=== PATIENT | male | born 1990 | race Caucasian/White ===

== ENCOUNTER 2018-05-24 09:44 | Emergency (ER) | payer BC ==
[~2018-05-24] VITALS: Ht 188 cm; Wt 72.6 kg
[2018-05-24 10:42] LABS: BASOPHIL % 0.8 % (0-2); PLATELET COUNT 248 x10^3mcL (130-400); RED CELL DISTRIBUTION WIDTH 13.4 % (11.5-14.5)
[2018-05-24 11:04] LABS: CALCIUM 9.6 mg/dL (8.5-10.1); CARBON DIOXIDE 24.7 mmol/L (21-32); CHLORIDE SERUM 98 mmol/L (98-107); CREATININE SERUM 1.2 mg/dL (0.7-1.3); GFR1 > 60 mL/min; GLUCOSE SERUM 117 mg/dL (74-106); POTASSIUM SERUM 3.6 mmol/L (3.5-5.1); SODIUM SERUM 138 mmol/L (136-145)
[2018-05-24 11:16] LABS: ALBUMIN 4.6 g/dL (3.4-5.0); ALKALINE PHOSPHATASE 90 U/L (46-116); ALT/SGPT 35 U/L (16-63); AMYLASE 41 U/L (25-115); AST/SGOT 16 U/L (15-37); BILIRUBIN TOTAL 2.63 mg/dL (0.20-1.00); CHOLESTEROL 162 mg/dL (<200); HDL CHOLESTEROL 49 mg/dL (40-60); LIPASE 121 IU/L (73-393); T4(THYROXINE) 7.4 ug/dL (4.7-13.3)
[2018-05-24 12:18] LABS: microscopic required? YES; urine erythrocyte 2+ (NEGATIVE)
[2018-05-24 12:54] LABS: AMPHETAMINE QUAL UR NONE DETECTED (See below)
[2018-05-24 14:24] VITALS: BP 117/67
== END 2018-05-24 14:25 | disposition home or self-care (01) ==
LOC: ED 09:44
PROVIDERS: Emergency Medicine
DX: R07.2 Precordial pain (principal); R11.10 Vomiting, unspecified; R10.9 Unspecified abdominal pain; F12.20 Cannabis dependence, uncomplicated; F17.210 Nicotine dependence, cigarettes, uncomplicated
CPT/HCPCS: 83880; 99406; G0480; J1630; J2060; J7030

== ENCOUNTER 2020-02-17 03:52 | Emergency (ER) | payer MEDICAID ==
[~2020-02-17] VITALS: Ht 188 cm; Wt 73.9 kg
[2020-02-17 06:17] VITALS: BP 128/81
== END 2020-02-17 06:18 | disposition home or self-care (01) ==
LOC: ED 03:52
DX: F11.20 Opioid dependence, uncomplicated (principal); R07.89 Other chest pain; R10.13 Epigastric pain
CPT/HCPCS: J2060; J7030; Q0092

== ENCOUNTER 2020-02-19 00:51 | Emergency (ER) | payer MEDICAID ==
[~2020-02-19] VITALS: Ht 188 cm; Wt 75.3 kg
[2020-02-19 02:49] VITALS: BP 127/88
== END 2020-02-19 02:49 | disposition home or self-care (01) ==
LOC: ED 00:51
DX: R07.89 Other chest pain (principal); K21.9 Gastro-esophageal reflux disease without esophagitis; F11.10 Opioid abuse, uncomplicated
CPT/HCPCS: J1885; Q0092

== ENCOUNTER 2020-02-20 00:20 | Emergency (ER) | payer MEDICAID ==
[~2020-02-20] VITALS: Ht 188 cm; Wt 76.7 kg
[2020-02-20 00:27] VITALS: Ht 188 cm; Wt 76.7 kg
[2020-02-20 02:07] LABS: CALCIUM 8.1 mg/dL (8.5-10.1); CARBON DIOXIDE 26.1 mmol/L (21-32); CHLORIDE SERUM 106 mmol/L (98-107); GFR1 > 60 mL/min; GLUCOSE SERUM 145 mg/dL (74-106); POTASSIUM SERUM 4.2 mmol/L (3.5-5.1); SODIUM SERUM 142 mmol/L (136-145)
[2020-02-20 02:10] LABS: BASOPHIL % 0.4 % (0-2); PLATELET COUNT 244 x10^3mcL (130-400)
[2020-02-20 02:11] LABS: ALBUMIN 3.8 g/dL (3.4-5.0); ALKALINE PHOSPHATASE 73 U/L (46-116); ALT/SGPT 17 U/L (16-63); AST/SGOT 8 U/L (15-37); BILIRUBIN TOTAL 0.81 mg/dL (0.20-1.00); LIPASE 241 IU/L (73-393); TOTAL PROTEIN, SERUM 6.1 g/dL (6.4-8.2)
[2020-02-20 02:11] LABS: AMPHETAMINE QUAL UR NONE DETECTED (See below)
[2020-02-20 04:30] VITALS: BP 129/88
== END 2020-02-20 04:30 | disposition home or self-care (01) ==
LOC: ED 00:20
PROVIDERS: Emergency Medicine
DX: R10.816 Epigastric abdominal tenderness (principal); R07.89 Other chest pain; K21.9 Gastro-esophageal reflux disease without esophagitis; F11.10 Opioid abuse, uncomplicated
CPT/HCPCS: J2060; J2405

== ENCOUNTER 2020-02-25 20:48 | Emergency (ER) | payer MEDICAID ==
[~2020-02-25] VITALS: Ht 188 cm; Wt 73.7 kg
[2020-02-25 20:52] VITALS: Ht 188 cm; Wt 73.7 kg
[2020-02-25 21:46] LABS: BASOPHIL % 0.4 % (0-2); PLATELET COUNT 236 x10^3mcL (130-400); RED CELL DISTRIBUTION WIDTH 13.4 % (11.5-14.5)
[2020-02-25 22:14] LABS: CARBON DIOXIDE 28.5 mmol/L (21-32); CHLORIDE SERUM 104 mmol/L (98-107); GFR1 > 60 mL/min; GLUCOSE SERUM 115 mg/dL (74-106); POTASSIUM SERUM 3.9 mmol/L (3.5-5.1); SODIUM SERUM 143 mmol/L (136-145)
[2020-02-25 22:19] LABS: ALBUMIN 4.3 g/dL (3.4-5.0); ALKALINE PHOSPHATASE 77 U/L (46-116); ALT/SGPT 22 U/L (16-63); AST/SGOT 12 U/L (15-37); BILIRUBIN TOTAL 0.6 mg/dL (0.20-1.00); TOTAL PROTEIN, SERUM 7.1 g/dL (6.4-8.2)
[2020-02-25 23:43] VITALS: BP 133/80
== END 2020-02-25 23:45 | disposition left against medical advice (07) ==
LOC: ED 20:48
PROVIDERS: Emergency Medicine
DX: R10.13 Epigastric pain (principal); R07.89 Other chest pain; Z13.9 Encounter for screening, unspecified
CPT/HCPCS: 36415; J2270; Q0092; Q0162